=== PATIENT | female | born 1935 | race Hispanic/Latino ===

== ENCOUNTER 2016-04-23 08:55 | Day surgery (SDC) | payer MEDICARE, OTHER ==
[2016-04-23] MEDS ORDERED: RECLAST IV ONE ×2 (09:00→09:14)
[2016-04-23 09:30] VITALS: BP 128/52
== END 2016-04-23 10:45 | disposition home or self-care (01) ==
LOC: OPU 08:55
PROVIDERS: ATTEND Specialist
DX: M81.0 Age-related osteoporosis without current pathological fracture (principal)
CPT/HCPCS: 96365; J3489